=== PATIENT | male | born 1985 | race Caucasian/White ===

== ENCOUNTER → 2020-03-26 | Outpatient (CLI) | payer BC ==
[~2020-03-26] MED LIST: GADOBENATE DIMEGLUMINE 1 ML IV ONE; IOPAMIDOL 300 MG/ML 15ML VIAL IT ONE; LIDOCAINE HCL 1% LOCAL INJ 20 ML VIAL ONE
--- NOTE | 2020-03-26 13:25 | Diagnostic Imaging Report ---
MRI of the right shoulder with contrast. History: Right lateral labral tear. Shoulder pain. Decreased range of motion. Pain not responding to conservative management. Comparison: Arthrogram from the same day Technique: Multiplanar multisequence MRI of the shoulder after the administration of intra-articular gadolinium contrast material Findings: Rotator cuff: Mild rotator cuff tendinosis with articular sided fraying involving the anterior fibers of the supraspinatus tendon at the humeral insertion site best seen on coronal image 16 and 17 as well as sagittal image 4. No rotator cuff tear, muscle atrophy or retraction. Osseous acromion complex: Type II acromion with mild lateral downsloping. Moderate degenerative arthrosis at the acromioclavicular joint with undersurface spurring and narrowing of the supraspinatus tendon outlet. Bone marrow edema at the distal clavicle and adjacent acromion with adjacent soft tissue edema best seen on coronal series 3 image 16 through 21 likely reactive/stress related. Glenohumeral joint: Superior labral tear extending from anterior to posterior best seen on series 4 image 11 through 14. The articular cartilage surfaces are intact. Gadolinium contrast material is seen filling the glenohumeral joint. The capsular structures are intact. The humeral head is well-seated in the glenoid fossa. Biceps tendon: The biceps tendon is intact. Other findings: Negative for muscle denervation or osseous fracture. Impression: Superior labral tear extending from anterior to posterior. Moderate degenerative arthrosis at the acromioclavicular joint with undersurface spurring and narrowing of the supraspinatus tendon outlet. Bone marrow edema at the distal clavicle and adjacent acromion with adjacent soft tissue edema likely reactive/stress related. Mild rotator cuff tendinosis with articular sided fraying involving the anterior fibers of the supraspinatus tendon at the humeral insertion site Signed by: Dr. Price López M.D. on 03/26/2020 1:21 PM
--- NOTE | 2020-03-26 13:35 | Diagnostic Imaging Report ---
PROCEDURE: Fluoroscopically guided arthrogram of the right shoulder Procedural Personnel Attending physician(s): Dm Valentine MD Fellow physician(s): None Resident physician(s): None Advanced practice provider(s): None Pre-procedure diagnosis: Concern for right shoulder labral tear Post-procedure diagnosis: Same Indication: Evaluate for right shoulder labral tear Additional clinical history: None Complications: No immediate complications. IMPRESSION: Fluoroscopically guided right shoulder arthrogram PROCEDURE SUMMARY: - Fluoroscopically guided arthrogram of the right shoulder. - Patient to be transported to MRI PROCEDURE DETAILS: Pre-procedure Consent: Informed consent for the procedure including risks, benefits and alternatives was obtained and time-out was performed prior to the procedure. Preparation: The site was prepared and draped using maximal sterile barrier technique including cutaneous antisepsis. Anesthesia/sedation Level of anesthesia/sedation: Local 1% lidocaine Arthrogram Heliotherapist images were obtained. Following local 1% lidocaine anesthesia, a 22 gauge spinal needle was advanced to the right shoulder. Intra-articular positioning was confirmed with injection of 1cc Isovue contrast material. Subsequently, 12 cc of gadolinium arthrogram solution was administered to the joint (containing 10cc normal saline, 5cc Isovue, 0.1cc Multihance gadolinium based contrast). Radiation Dose Fluoroscopy time (minutes): 2.1 Reference air kerma (mGy): 14 Additional Details Additional description of procedure: None Equipment details: None Specimens removed: None Estimated blood loss (mL): Less than 10 Attestation Signer name: Dm Valentine MD I attest that I was present for the entire procedure. I reviewed the stored images and agree with the report as written. Signed by: Dm Valentine MD on 03/26/2020 1:32 PM
--- NOTE | 2020-03-27 10:48 | NUR ---
Follow up call with pt, no issues or complaints noted.
== END ==
LOC: DX 11:01
PROVIDERS: ATTEND Specialist
DX: S43.491A Other sprain of right shoulder joint, initial encounter (principal)
CPT/HCPCS: 23350; 77002; J2001; Q9967